=== PATIENT | female | born 1990 | race Two or more races ===

== ENCOUNTER 2025-04-23 11:22 | Emergency (ER) | payer MEDICAID, OTHER ==
[~2025-04-23] VITALS: Ht 167.6 cm; Wt 104.0 kg
--- NOTE | 2025-04-23 11:36 | ED.PDOC ---
Musculoskeletal HPI Comments 35 year old female presents to the ED with a chief complaint of LT knee pain onset today (04/23/25). 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 Denies PMHx as well as fall, head injury, LOC, headache, numbness/tingling, chest pain, shortness of breath, fever, chills. No other symptoms or modifying factors present at this time. Chief Complaint: Lower Extremity Time Seen by MD: 11:30 Reviewed Notes: Medications, Allergies Allergies: Coded Allergies: NO KNOWN ALLERGIES (Unverified , 04/23/25) Home Meds Active Scripts Ibuprofen Micronized (MOTRIN TABLET) 600 Mg Tb, 600 MG PO TID PRN for 3 Days, #9 TAB *Black box warning-NSAIDS can increase risk of LA & hypertension, GI irritation, ulceration, bleed, perferation. Do not use post cardiac surgery. Use short duration/lowest effective dose. Prov:BEAU LAWRENCE MD 04/23/25 Information Source: Patient Mode of Arrival: Ambulatory Extremity Location: Knee Timing: Hours Prehospital treatment: None Severity: Moderate Able to Move Extremity: Yes Bear Weight: Fully Pain: Moderate Mechanism: Twisting Circumstances: Work Related Onset of Symptoms: After Trauma Symptoms: Pain DVT Risk Factors: NONE Associated signs and symptoms: Knee pain Past Medical History PAST MEDICAL HISTORY: Denies Surgical History: Denies all surgeries BRANCH SPECIALIST History: No Pertinent BRANCH SPECIALIST History Family History Family History: Reviewed,noncontributory to illness, No family hx of Cancer, No family hx of DM, No family hx of Heart ilan, No family hx of HTN, No family hx ofKidney ilan, No family hx of Liver ilan, No family hx of Lung ilan, No family hx of Stroke Social History Smoker: Non-Smoker Alcohol: Denies ETOH Use Drugs: Denies Drug Use Lives In: Home Musculoskeletal: reports: others (RT knee pain) Physical Exam General Appearance: Moderate Distress, Normal HEENT: Normal ENT Inspection, Pharynx Normal, TMs Normal Neck: Full Range of Motion, Non-Tender, Normal, Normal Inspection Respiratory: Chest Non-Tender, Lungs Clear, No Accessory Muscle Use, No Respiratory Distress, Normal Breath Sounds Cardiovascular: No Edema, No JVD, No Murmur, No Gallop, Normal Peripheral Pulses, Regular Rate/Rhythm Breast Exam: Deferred Gastrointestinal: No Organomegaly, Non Tender, No Pulsatile Mass, Normal Bowel Sounds, Soft Genitalia: Deferred Pelvic: Deferred Rectal: Deferred Extremities: No calf tenderness, Normal capillary refill, Normal inspection, Normal range of motion, Non-tender, No pedal edema Musculoskeletal : Apperance: Normal Neurologic: Alert, it trainer II-XII nml as Tested, No Motor Deficits, Normal Affect, Normal Mood, No Sensory Deficits Cerebellar Function: Normal Reflexes: Normal Skin: Dry, Normal Color, Warm Peripheral Pulses: 3+ Radial (R), 3+ Radial (L) Lymphatic: No Adenopathy Was a procedure done? Was a procedure done?: No Differential Diagnosis EXT Differential Diagnosis: Sprain, Strain X-Ray, Labs, Meds, VS Vital Signs Date Time Temp Pulse Resp B/P (MAP) Pulse Ox O2 Delivery O2 Flow Rate FiO2 04/23/25 12:32 76 16 100 Room Air 04/23/25 12:30 99.2 76 16 151/70 (97) 100 99.2 04/23/25 11:24 98.4 71 18 149/96 98 98.4 Current Medications Medications (Trade) Dose Ordered Sig/Karla Route Start Time Stop Time Status Last Admin Ketorolac Tromethamine (Toradol Injection) 60 mg ONCE ONCE IM 04/23/25 12:15 04/23/25 12:16 DC 04/23/25 12:31 [place] [id number] Ph: [phone] DIAGNOSTIC IMAGING Diagnostic Imaging Report : [id number] Signed PATIENT: RAJAT JHA ACCT: [id number] UNIT: [id number] : 1990 LOC: ER ROOM / BED: / AGE / SEX: 35 / F ADM STATUS: REG ER SERVICE 1135 ORDERING PHYSICIAN: BEAU LAWRENCE MD PROCEDURE(s): LKNE2 - L KNEE 2V XRAY REASON: twistinjury ORDER NUMBER(s): [id number], ACCESSION NUMBER(s): [id number] XY L KNEE 2V XRAY, INDICATION: twistinjury TECHNICAL DATA: Frontal and lateral views were obtained of the left knee. COMPARISON: None FINDINGS: No fracture is identified. Medial, lateral and patellofemoral compartment joint spaces are maintained. Alignment is anatomic. Soft tissues are within normal limits. No joint effusion is demonstrated. IMPRESSION: No acute fracture or dislocation of the left knee. Patient alert. Complaining of left knee pain. She twisted her left knee. No direct trauma. No obvious injuries. Was given Toradol. Was given prescription of Motrin. Explained to the patient. Was told to follow up with her primary care physician. Was told to come back if there is any problem. Time of 1ST Reevaluation: 12:00 Reevaluation 1ST: Improved Patient Education/Counseling: Diagnosis, Treatment, Prognosis Family Education/Counseling: No Family Present Departure 1 Departure Time of Disposition: 12:01 Impression: Primary Impression: Muscle strain Disposition: 01 HOME / SELF CARE / HOMELESS Condition: Good e-Prescriptions Ibuprofen Micronized (MOTRIN TABLET) 600 Mg Tb 600 MG PO TID PRN for 3 Days, #9 TAB *Black box warning-NSAIDS can increase risk of LA & hypertension, GI irritation, ulceration, bleed, perferation. Do not use post cardiac surgery. Use short duration/lowest effective dose. Prov: BEAU LAWRENCE MD 04/23/25 Discharged With: Self Critical Care Note Critical Care Time?: No Stability Stability form required: No Heart Score Heart Score: Heart Score Response (Comments) Value History N/A 0 EKG N/A 0 Age N/A 0 Risk Factors N/A 0 Troponin N/A 0 Total 0 I personally scribed for BEAU LAWRENCE MD ([email or web address]) on 04/23/25 at 11:36. Electronically submitted by Marsha Pinzon ([email or web address]). I personally scribed for BEAU LAWRENCE MD ([email or web address]) on 04/23/25 at 13:03. Electronically submitted by Yumiko Mitchell ([employer]). I personally scribed for BEAU LAWRENCE MD ([email or web address]) on 04/23/25 at 13:37. Electronically submitted by Yumiko Mitchell ([employer]). BEAU LAWRENCE MD Apr 23, 2025 11:36
[2025-04-23] MEDS ORDERED: IBU600T PO (12:02)
[2025-04-23] MEDS: KETOROLAC TROMETH 60MG/2ML VIAL IM ONE (12:31)
--- NOTE | 2025-04-23 12:54 | DVH ---
XY L KNEE 2V XRAY, INDICATION: twistinjury TECHNICAL DATA: Frontal and lateral views were obtained of the left knee. COMPARISON: None FINDINGS: No fracture is identified. Medial, lateral and patellofemoral compartment joint spaces are maintained . Alignment is anatomic. Soft tissues are within normal limits. No joint effusion is demonstrated. IMPRESSION: No acute fracture or dislocation of the left knee.
[2025-04-23 15:39] VITALS: BP 141/88; PULSE 60; RESP 15; TEMP 97.6; O2SAT 97
== END 2025-04-23 15:57 | disposition home or self-care (01) ==
LOC: ER 11:22
DX: S86.812A Strain of other muscle(s) and tendon(s) at lower leg level, left leg, initial encounter (principal); X58.XXXA Exposure to other specified factors, initial encounter; Y93.89 Activity, other specified; Y92.89 Other specified places as the place of occurrence of the external cause; Y99.8 Other external cause status
CPT/HCPCS: 73560; 96372; 99283; J1885